=== PATIENT | male | born 1990 | race Hispanic/Latino ===

== ENCOUNTER → 2023-04-11 | Outpatient (CLI) | payer OTHER ==
[~2023-04-11] MED LIST: IOHEXOL-350 75 ML VIAL IV ONE
== END | disposition home or self-care (01) ==
LOC: RAH 10:29
PROVIDERS: ATTEND Student in an Organized Health Care Education/Training Program
DX: R16.0 Hepatomegaly, not elsewhere classified (principal); R10.9 Unspecified abdominal pain; K40.20 Bilateral inguinal hernia, without obstruction or gangrene, not specified as recurrent; M47.815 Spondylosis without myelopathy or radiculopathy, thoracolumbar region
CPT/HCPCS: 74177; Q9967

== ENCOUNTER 2023-07-27 06:35 | Day surgery (SDC) | payer OTHER ==
[2023-07-26 09:37] VITALS: BP 152/77; PULSE 98; RESP 18
[2023-07-26 09:40] LABS: BASOPHILS # (AUTO) 0.04 K/uL (0.00-0.20); BASOPHILS % (AUTO) 0.6 % (0.0-5.0); EOSINOPHILS # (AUTO) 0.15 K/uL (0.00-0.70); EOSINOPHILS % (AUTO) 2.4 % (0.0-8.0); HEMATOCRIT 49.3 % (42-54); IMMATURE GRANULOCYTE ABSOLUTE 0.01 K/uL (0-1); LYMPHOCYTES # (AUTO) 2.9 K/uL (1.0-4.8); LYMPHOCYTES % (AUTO) 45.8 % (21.0-51.0); MEAN CORPUSCULAR HEMOGLOBIN 29.8 pg (27.0-33.0); MEAN CORPUSCULAR HGB CONC 33.9 g/dL (32.0-36.0); MEAN CORPUSCULAR VOLUME 87.9 fL (79-99); MONOCYTES # (AUTO) 0.5 K/uL (0.1-1.0); MONOCYTES % (AUTO) 7.6 % (3.0-13.0); NEUTROPHILS # (AUTO) 2.7 K/uL (1.8-7.7); NEUTROPHILS % (AUTO) 43.4 % (40.0-77.0); PLATELET COUNT (AUTO) 253 K/uL (130-400); RED BLOOD CELL COUNT(AUTO) 5.61 MIL/uL (4.50-6.20); RED CELL DISTRIBUTION WIDTH 12.8 % (11.0-15.5); WHITE BLOOD COUNT (AUTO) 6.3 K/uL (4.8-10.8)
[2023-07-26 09:50] LABS: CREATININE 0.8 mg/dL (0.5-1.5); POTASSIUM 4.1 mmol/L (3.5-5.1)
[~2023-07-27] VITALS: Ht 180.3 cm; Wt 108.9 kg
[2023-07-27] VITALS (16 sets, daily range): BP systolic 95–156; BP diastolic 48–85; PULSE 70–98; RESP 15–20
[~2023-07-27 06:35] MED LIST changes: +CYCL-309 PO; -IOHEXOL-350 75 ML VIAL IV ONE
[2023-07-27] MEDS ORDERED: LACTATED RINGERS 1000ML 1,000 ML IV ONE (06:51)
[2023-07-27] MEDS ORDERED: CEFAZOLIN SODIUM 2 GM VIAL ONE (06:51)
[2023-07-27] MEDS ORDERED: DEXAMETHASONE SOD PHOSPHATE 4 MG/ML 1ML VIAL ONE (07:31)
[2023-07-27] MEDS ORDERED: KETOROLAC 30MG VIAL (30MG/ML) ONE ×2 (07:31→09:11)
[2023-07-27] MEDS ORDERED: LIDOCAINE PF 100MG/5ML (2%) SYRINGE 5ML ONE (07:31)
[2023-07-27] MEDS ORDERED: ONDANSETRON 4MG INJ ONE (07:32)
[2023-07-27] MEDS ORDERED: ROCURONIUM BROMIDE 10MG/1ML 5ML VL ONE (07:32)
[2023-07-27] MEDS ORDERED: FENTANYL CITRATE PF 50 MCG/1 ML 2ML VIAL ONE ×2 (07:32→09:22)
[2023-07-27] MEDS ORDERED: MIDAZOLAM HCL 1 MG/ML 2ML VIAL ONE (07:32)
[2023-07-27] MEDS ORDERED: PROPOFOL 10 MG/ML 20ML VIAL IV ONE (07:32)
[2023-07-27] MEDS ORDERED: LIDOCAINE HCL 1% 20 ML VIAL ONE (09:15)
[2023-07-27] MEDS ORDERED: BUPIVACAINE/PF 0.25% 30ML VIAL IJ ONE (09:16)
[2023-07-27] MEDS ORDERED: LIDOCAINE HCL 2% PF 20 ML JEL DISP.SYRIN MM ONE (09:35)
== END 2023-07-27 11:40 | disposition home or self-care (01) ==
LOC: DAH 06:35
PROVIDERS: ATTEND Student in an Organized Health Care Education/Training Program
DX: K60.5 Anorectal fistula (principal)
CPT/HCPCS: 80048; 85025; 36415; 46270; A6260; J1100; A4663; A4606; A4344; A4649; J7120; J3010 ×2; J0665; J2001; J2250; J2704; J2405; J1885 ×2; J0690; A4215; A4223; A4222; A4221; A5113; A4600; J3490